=== PATIENT | male | born 1985 | race Caucasian/White ===

== ENCOUNTER 2017-04-02 19:29 | Day surgery (SDC) | payer OTHER ==
[2017-04-02 19:35] VITALS: O2SAT 97
[2017-04-02] MEDS ORDERED: GLUCAGON HCL 1 MG VIAL IVP ONE ×2 (19:51→20:12)
--- NOTE | 2017-04-02 20:01 | EDPHY ---
H & P Stated Complaint: Steak stuck in throat - Personal History Current Tetanus/Diphtheria Vaccine: Yes Current Tetanus Diphtheria and Acellular Pertussis (TDAP): Yes - Medical/Surgical History Hx Asthma: No Hx Chronic Respiratory Disease: No Hx Diabetes: No Hx Cardiac Disease: No Hx Renal Disease: No Hx Cirrhosis: No Hx Alcoholism: No Hx HIV/AIDS: No Hx Splenectomy or Spleen Trauma: No Other PMH: Denies - Social History Smoking Status: Never smoked Time Seen by Provider: 04/02/17 19:48 HPI/ROS: CHIEF COMPLAINT: "Steak in throat" HISTORY OF PRESENT ILLNESS: 32-year-old male generally healthy with no prior history of esophageal pathology complaining of steak stuck in esophagus for the past 2 hrs. No prior history of similar. He is unable swallow secretions. No abdominal pain. No chest pain. No dyspnea. REVIEW OF SYSTEMS: A ten point review of systems was performed and is negative with the exception of the items mentioned in the HPI PAST MEDICAL & SURGICAL HISTORY: No pertinent medical or surgical history SOCIAL HISTORY: Nonsmoker PHYSICAL EXAM (Prior to examination, patient consented to physical exam, hands were washed and my usual and customary physical exam procedures followed) 1) GENERAL: Well-developed, well-nourished, alert and oriented. Appears uncomfortable. 2) HEAD: Normocephalic, atraumatic 3) HEENT: Pupils equal, round, reactive to light bilaterally. Sclera anicteric. Spitting his secretions 4) NECK: Full range of motion, no meningeal signs. 5) LUNGS: Clear auscultation bilaterally, no wheezes, no rhonchi, no retractions. 6) HEART: Regular rate and rhythm, no murmur, no heave, no gallop. 7) ABDOMEN: No guarding, no rebound, no focal tenderness, negative McBurney's, negative Payton's, negative Rovsing's, negative peritoneal sign, 8) MUSCULOSKELETAL: Moving all extremities, no focal areas of tenderness, no obvious trauma. No peripheral edema or discoloration. 9) BACK: No visual or palpable abnormality. 10) SKIN: No rash, no petechiae. 11) Psychiatric: Patient is oriented X 3, there is no agitation. DIFFERENTIAL DIAGNOSIS: In no particular include but limited to esophageal foreign body, aspirated foreign body, esophageal abrasion (Luiz Mitchell) Constitutional: Initial Vital Signs Temperature (C) 37.1 C 04/02/17 19:31 Heart Rate 85 04/02/17 19:31 Respiratory Rate 16 04/02/17 19:31 Blood Pressure 144/86 H 04/02/17 19:31 O2 Sat (%) 97 04/02/17 19:31 O2 Delivery Mode Room Air Allergies/Adverse Reactions: No Known Allergies Allergy (Unverified 03/09/14 15:16) Home Medications: Medication Instructions Recorded NK [No Known Home Meds] 04/02/17 Medical Decision Making ED Course/Re-evaluation: I evaluated this patient with Erickson mitchell. This patient has an esophageal foreign body which is steak. We have discussed the case with GI of the [facility]. They will come to perform an endoscopy. We will try some glucagon in the interim. Patient is in no distress. Patient has never had this before. ( Jose Junior) 7:54 p.m.: Patient complaining of esophageal foreign body sensation, unable to swallow secretions. Discussed case with secondary supervising physician Dr. Junior at this time. GI will be consulted 8:01 p.m.: Consultation with on-call gastroenterology Dr Quiñonez who requests patient be NPO for 6 hours prior to endoscopic removal which would put the patient at midnight for removal as he last ate at 6:00 p.m. Midnight: Care turned over to Dr. Lam, awaiting Dr. Quiñonez gastroenterology. Serial exams have no performed on patient. He continues to experience foreign body sensation. (Luiz Mitchell) - Data Points Medications Given: Discontinued Medications Glucagon (Glucagon) 1 mg IVP EDNOW ONE Stop: 04/02/17 19:52 Last Admin: 04/02/17 20:14 Dose: 1 mg Glucagon (Glucagon) 1 mg IVP EDNOW ONE Stop: 04/02/17 20:13 Last Admin: 04/02/17 20:15 Dose: Not Given Sodium Chloride (Ns) 1,000 mls @ 0 mls/hr IV EDNOW ONE; Wide Open PRN Reason: Protocol Stop: 04/02/17 20:06 Last Admin: 04/02/17 20:09 Dose: 1,000 mls Departure - Departure Disposition: Home, Routine, Self-Care Clinical Impression: Esophageal foreign body Qualifiers: Encounter type: initial encounter Qualified Code(s): T18.108A - Unspecified foreign body in esophagus causing other injury, initial encounter Condition: Good Instructions: Esophageal Foreign Body (ED) Referrals: NONE *PRIMARY CARE P,. [Primary Care Provider] - As per Instructions
[2017-04-02] MEDS ORDERED: NS 1,000 ML IV ONE (20:05)
[2017-04-02 21:35] VITALS: BP 120/78
[2017-04-02 23:54] VITALS: PULSE 68; RESP 20
[2017-04-03] MEDS ORDERED: fentaNYL 100 MCG/2 ML INJ ONE ×2 (00:06)
[2017-04-03] MEDS ORDERED: PROPOFOL/EMULSION 500 MG/50 ML BOTTLE IV ONE (00:06)
[2017-04-03] MEDS ORDERED: MIDAZOLAM 2 MG/2 ML VIAL ONE (00:07)
--- NOTE | 2017-04-03 00:16 | PDANEPAE ---
ANE History of Present Illness EGD Steak struck in esophagus. ANE Past Medical History - Cardiovascular History Hx Hypertension: No Hx Arrhythmias: No Hx Chest Pain: No Hx Coronary Artery / Peripheral Vascular Disease: No Hx CHF / Valvular Disease: No Hx Palpitations: No - Pulmonary History Hx COPD: No Hx Asthma/Reactive Airway Disease: No Hx Recent Upper Respiratory Infection: No Hx Oxygen in Use at Home: No Hx Sleep Apnea: No - Endocrine History Hx Diabetes: No Hypothyroid: No Hyperthyroid: No Obesity: no - Other Health History Other Health History: Hemochromatosis, flatulence/abdominal distention - Surgical History Prior Surgeries: Carefree teeth extraction ANE Review of Systems Review of systems is: negative Review of Systems: - Exercise capacity METS (RN): 4 METS ANE Patient History - Allergies Allergies/Adverse Reactions: No Known Allergies Allergy (Unverified 03/09/14 15:16) - Home Medications Home Medications: NK [No Known Home Meds] 04/02/17 [Last Taken Unknown] - NPO status NPO Since - Liquids (Date): 04/02/17 NPO Since - Solids (Date): 04/02/17 NPO Since - Solids (Time): 17:00 - Anes Hx Anes Hx: no prior problems - Smoking Hx Smoking Status: Never smoked - Alcohol Use Alcohol Use: Occasionally - Family Anes Hx Family Anes Hx: none ANE Labs/Vital Signs - Vital Signs Blood Pressure: 120/78 Heart Rate: 68 Respiratory Rate: 20 O2 Sat (%): 97 Height: 198.12 cm Weight: 95.254 kg ANE Physical Exam - Airway Neck exam: FROM Mallampati Score: Class 1 Mouth exam: normal dental/mouth exam - Pulmonary Pulmonary: no respiratory distress - Cardiovascular Cardiovascular: regular rate and rhythym - ASA Status ASA Status: I, E ANE Anesthesia Plan Anesthesia Plan: general endotracheal anesthesia (RSI Possible full stomach)
--- NOTE | 2017-04-03 00:27 | POSTANESTH ---
Post Anesthetic Evaluation Cardiovascular Status: Normal, Stable Respiratory Status: Normal, Stable Level of Consciousness/Mental Status: Can Participate in Eval Pain Control: Adequate, Prn Tx Ordered Nausea/Vomiting Control: Adequate, Prn Tx Ordered Complications Possibly Related to Anesthesia: None Noted (Pt was able to swallow water in pre op Case cancelled. No anesthesia given)
[2017-04-03 00:29] VITALS: TEMP 98.2
--- NOTE | 2017-04-03 08:00 | GCON ---
[f rep st] CONSULTATION EMERGENCY ROOM GASTROENTEROLOGY CONSULTATION DATE OF CONSULTATION: 04/02/2017 REASON FOR CONSULTATION: Dysphagia with food impaction. HISTORY OF PRESENT ILLNESS: the patient is a 32-year-old gentleman, previously in good health, who w as sitting down to a meal of steak 6 hours ago and states that with his first swallow of steak, he camacho d an impaction of steak in his esophagus and was unable to handle further swallowing or handle his se cretions. He was given glucagon without success with relief of the food impaction. I was contacted by Dr. Junoir and asked to come in and evaluate the patient tonight. On questioning him tonight, he continues to have a foreign body sensation to the esophagus and is unable to handle his secretions. He has no prior history of gastroesophageal reflux disease, heartburn, nausea, or abdominal pain. H is weight is stable. He denies any NSAID use. MEDICATIONS PRIOR TO ADMISSION: None. ALLERGIES: None. PAST MEDICAL HISTORY: Significant for hemochromatosis, confirmed with liver biopsy, who is presently having normal iron stores after multiple phlebotomies in the past. PAST SURGICAL HISTORY: Remarkable only for liver biopsy. SOCIAL HISTORY: He is single. He resides in [place]. Works for [employer]. He does not smoke tobacco or drink significant quantities of alcohol. REVIEW OF SYSTEMS: Negative for a comprehensive review of systems other than dysphagia as noted nadine duenas. PHYSICAL EXAMINATION: VITAL SIGNS: Today, temperature 37.1 Celsius, pulse 85 and regular, blood pre ssure 144/86, respiratory rate 16, O2 saturation 97% on room air. GENERAL: This is a well developed , well nourished gentleman in no apparent distress. INTEGUMENT: Clear. HEENT: Head atraumatic, no rmocephalic. Pupils equal, round, reactive to light. EOMs intact. Sclerae nonicteric. Nares paten t. Mucous membranes moist. NECK: Supple. Full range of motion. Trachea midline. PULMONARY: Nata gs clear to percussion and auscultation. CARDIOVASCULAR: Regular rhythm and rate. Normal S1, S2 wi thout murmur. Peripheral pulses strong bilaterally. GASTROINTESTINAL: Abdomen supple. Positive maciej wel sounds. No liver or spleen tip palpable. No masses or tenderness noted. No fluid wave noted. MUSCULOSKELETAL: No focal neuro deformities of the extremities, moved all 4 limbs. NEURO: Patient was alert and oriented x3. There are no focal neurologic deficits. LABS: None. IMPRESSION: Food impaction in an otherwise healthy 32-year-old gentleman with a history of hemochrom atosis with recent normal iron stores. RECOMMENDATION: Esophagogastroduodenoscopy tonight, patient has been n.p.o. for 6 hours. Will perfo EGD with propofol anesthesia with endotracheal intubation to protect airway prior to proceeding [facility] endoscopy. /[id number]/MODL
== END 2017-04-03 00:33 | disposition home or self-care (01) ==
LOC: FSGY 23:55
PROVIDERS: ATTEND Internal Medicine Gastroenterology
DX: T18.128A Food in esophagus causing other injury, initial encounter (principal); Z53.8 Procedure and treatment not carried out for other reasons
CPT/HCPCS: J1610; J2250; J2704; J3010